=== PATIENT | male | born 1960 | race Caucasian/White ===

== ENCOUNTER 2018-11-02 10:59 | Inpatient (IN) ==
[2018-11-02] MEDS ORDERED: DILTIAZEM 50 MG/10 ML VIAL IV STA ×2 (11:18→11:42)
[2018-11-02] MEDS ORDERED: dilTIAZem Drip 125 MG/125 ML PREMIX IV ONE (11:23)
[2018-11-02 11:29] LABS: Basophils # 0.1 10*3/uL (0.0-0.2); Basophils % 0.6 % (0.0-0.8); Eosinophils # 0.2 10*3/uL (0.0-0.87); Eosinophils % 1.5 % (0.00-10.9); Immature Granulocytes Absolute 0.12 #; Mean Corpuscular HGB Conc 32.6 GM/DL (32-36); Mean Corpuscular Volume 91.1 FL (87-102); Mean Platelet Volume 10.6 FL (9.6-12.0); Monocytes % 8.6 % (1.7-12.7); Neutrophils % 71.3 % (38.7-73.9); Platelet Count 281 T/CUMM (130-400); Red Blood Count 4.72 MC/CUMM (3.8-5.5); Red Cell Distribution Width 12.7 % (9.3-17.3); White Blood Count 11.6 T/CUMM (4-12)
[2018-11-02] MEDS ORDERED: dilTIAZem Drip 125 MG/125 ML PREMIX IV SCH (11:30)
[2018-11-02] MEDS ORDERED: DILTIAZEM 25 MG/5 ML VIAL IV ONE (11:43)
[2018-11-02 11:49] LABS: Albumin 4.3 G/DL (3.4-5.0); Bilirubin,Total 0.7 MG/DL (0.2-1.0); Calcium 9.1 MG/DL (8.5-10.1); Osmolality,Calculated 281.5 MOS/KG (273-304); Thyroid Stimulating Hormone 2.23 uIU/ml (0.358-3.74); Total Protein 7.3 G/DL (6.4-8.3)
[2018-11-02 12:03] LABS: Apearance,Urine CLEAR (Clear); Bilirubin,Urine Negative (Negative); Blood, Urine Negative (Negative); Glucose,Urine (UA) Negative (Negative); Hyaline Casts,Urine 3 /LPF (0-3); Ketones,Urine Negative (Negative); Mucus,Urine Occasional /LPF (Occasional); Nitrite,Urine Negative (Negative); Protein,Urine Negative; Urine Color Straw (Yellow); Urine Specific Gravity 1.008 (1.001-1.035); Urine Urobilinogen < 2.0 EU/DL (0.2-1.0); WBC,Urine <1 /HPF (0-6)
[2018-11-02] MEDS ORDERED: MAGNESIUM SULF RIDER 4 GM in PREMIX 1 EACH IV PRN (12:31)
[2018-11-02] MEDS ORDERED: ONDANSETRON 4 MG/2 ML VIAL IV PRN (12:31)
[2018-11-02] MEDS ORDERED: MAGNESIUM SULF RIDER 2 GM in PREMIX 1 EACH IV PRN (12:31)
[2018-11-02] MEDS ORDERED: ZALEPLON 5 MG CAPSULE PO PRN (12:31)
[2018-11-02] MEDS ORDERED: ENOXAPARIN 40 MG/0.4 ML SYRINGE SUBCUT SCH (13:00)
[2018-11-02] MEDS: DILTIAZEM CD 120 MG CAPSULE PO SCH (14:15)
[2018-11-02] MEDS: APIXABAN 5 MG TABLET PO SCH ×2 (14:15→22:21)
[2018-11-02] MEDS: SODIUM CHLORIDE 0.45% 1,000 ML IV SCH ×2 (14:21→22:20)
[2018-11-02] MEDS ORDERED: POTASSIUM CHLORIDE 20 MEQ TABLET PO ONE (15:15)
[2018-11-02] MEDS: ASCORBIC ACID 500 MG TABLET PO SCH ×2 (15:28→22:21)
[2018-11-02] MEDS ORDERED: CEFDINIR 300 MG CAPSULE PO SCH (21:00)
[2018-11-02] MEDS: TAMSULOSIN 0.4 MG CAPSULE PO SCH (22:21)
[2018-11-02] MEDS: GEMFIBROZIL 600 MG TABLET PO SCH (22:21)
[2018-11-03 05:55] LABS: Basophils # 0.1 10*3/uL (0.0-0.2); Basophils % 0.7 % (0.0-0.8); Eosinophils # 0.2 10*3/uL (0.0-0.87); Eosinophils % 2.4 % (0.00-10.9); Hematocrit 38.9 VOL% (42.0-52.0); Hemoglobin 12.3 GM/DL (14.0-18.0); Immature Granulocytes % 0.7 %; Immature Granulocytes Absolute 0.07 #; Lymphocytes # 1.7 10*3/uL (1.4-4.0); Lymphocytes % 17.7 % (21.2-54.2); Mean Corpuscular HGB Conc 31.6 GM/DL (32-36); Mean Corpuscular Volume 92.2 FL (87-102); Mean Platelet Volume 10.9 FL (9.6-12.0); Monocytes % 7.9 % (1.7-12.7); Neutrophils % 70.6 % (38.7-73.9); Platelet Count 236 T/CUMM (130-400); Red Blood Count 4.22 MC/CUMM (3.8-5.5); Red Cell Distribution Width 12.8 % (9.3-17.3); White Blood Count 9.6 T/CUMM (4-12)
[2018-11-03] MEDS: SODIUM CHLORIDE 0.45% 1,000 ML IV SCH (06:07)
[2018-11-03 06:09] LABS: Albumin 3.7 G/DL (3.4-5.0); Bilirubin,Total 0.6 MG/DL (0.2-1.0); Calcium 8.9 MG/DL (8.5-10.1); Osmolality,Calculated 283.3 MOS/KG (273-304); Total Protein 6.7 G/DL (6.4-8.3)
[2018-11-03 06:14] LABS: Calcium 8.8 MG/DL (8.5-10.1); Osmolality,Calculated 281.4 MOS/KG (273-304); Risk Ratio 3.52; VLDL CHOLESTEROL 39.6 MG/DL
[2018-11-03 07:54] VITALS: BP 148/85
[2018-11-03] MEDS: GEMFIBROZIL 600 MG TABLET PO SCH (08:26)
[2018-11-03] MEDS: APIXABAN 5 MG TABLET PO SCH (08:27)
[2018-11-03] MEDS: ASCORBIC ACID 500 MG TABLET PO SCH (08:27)
[2018-11-03] MEDS: TAMSULOSIN 0.4 MG CAPSULE PO SCH (08:28)
[2018-11-03] MEDS: DILTIAZEM CD 120 MG CAPSULE PO SCH (08:28)
[2018-11-03] MEDS ORDERED: cloNIDine 0.1 MG TABLET PO SCH (09:00)
[2018-11-03] MEDS ORDERED: NIACIN 500 MG TABLET PO SCH (09:00)
[2018-11-03] MEDS ORDERED: SIMVASTATIN 20 MG TABLET PO SCH (09:00)
[2018-11-03] MEDS ORDERED: LOSARTAN 50 MG TABLET PO SCH (09:00)
[2018-11-03] MEDS ORDERED: OMEGA 3 ACID ETHYL ESTERS 1 GM CAPSULE PO SCH (09:00)
[2018-11-03] MEDS ORDERED: POTASSIUM CHLORIDE 20 MEQ TABLET PO SCH (09:00)
[2018-11-03] MEDS ORDERED: PANTOPRAZOLE 40 MG TABLET PO SCH (09:00)
[2018-11-03] MEDS ORDERED: FUROSEMIDE 20 MG TABLET PO SCH (09:00)
[2018-11-03] MEDS ORDERED: ALLOPURINOL 100 MG TABLET PO SCH (09:00)
[2018-11-03] MEDS ORDERED: CEFDINIR 300 MG CAPSULE PO ONE (10:15)
[2018-11-04] MEDS ORDERED: METOPROLOL SUCCINATE XL 50 MG TABLET PO SCH (09:00)
== END 2018-11-03 11:26 | disposition home or self-care (01) | DRG 310 ==
LOC: N.ED 10:59 → N.EDINP 12:31 → N.TELEN 12:56
PROVIDERS: ADMIT Family Medicine; ATTEND Family Medicine